=== PATIENT | male | born 1965 | race Caucasian/White ===

== ENCOUNTER 2018-05-12 17:53 | Emergency (ER) | payer OTHER ==
[2018-05-12 17:54] VITALS: BMI 32.8
[2018-05-12 18:12] VITALS: BP 148/87; PULSE 67; TEMP 98.1; O2SAT 97
[2018-05-12] MEDS ORDERED: Tdap Vaccine 0.5 ml Vial (10-64 yrs) IM ONE ×2 (18:23→18:31)
--- NOTE | 2018-05-12 18:34 | C.PDOC ---
History Of Present Illness 52 year old male presents to the ED for worsening localized left foot pain caused by a puncture wound s/p nail injury sustained 5 days ago. Patient reports he was able to ambulate but the pain has since increased and worse when bearing weight. Denies weakness or numbness of the left foot/leg, deformities to the left foot, fever, and any other associated symptoms. Time Seen by Provider: 05/12/18 18:00 Chief Complaint (Nursing): Abnormal Labs History Per: Patient History/Exam Limitations: no limitations Onset/Duration Of Symptoms: Days Current Symptoms Are (Timing): Still Present Past Medical History Reviewed: Historical Data, Nursing Documentation, Vital Signs Vital Signs: Last Vital Signs Temp 98.1 F 05/12/18 18:08 Pulse 67 05/12/18 18:08 Resp BP 148/87 05/12/18 18:08 Pulse Ox 97 05/12/18 18:08 - [facility] Procedures TETANUS TOXOID ADMINIST (12/13/14) Family History: States: Unknown Family Hx - Social History Hx Tobacco Use: Yes Hx Alcohol Use: Yes Hx Substance Use: No - Immunization History Hx Tetanus Toxoid Vaccination: Yes (UTD) Review Of Systems Except As Marked, All Systems Reviewed And Found Negative. Constitutional: Negative for: Fever Musculoskeletal: Positive for: Foot Pain (left. ). Negative for: Other (deformities of the left foot. ) Neurological: Negative for: Weakness, Numbness, Incoordination Physical Exam - Physical Exam Appears: Well, Non-toxic, No Acute Distress Skin: Warm, Dry, Other (x22 puncture wounds to the plantar aspect left of the left foot. (-)edema, (-) wound discharge., (-) proximal streaking or erythema.) Head: Normacephalic Eye(s): bilateral: PERRL Oral Mucosa: Moist Extremity: Normal ROM (of the left foot. ), No Tenderness, No Calf Tenderness, Capillary Refill (less than 2 seconds.), No Deformity, No Swelling Pulses: Left Dorsalis Pedis: Normal, Right Dorsalis Pedis: Normal Neurological/Psych: Oriented x3, Normal Speech, Normal Cognition, Normal Motor, Normal Sensation, Normal Reflexes Gait: Unsteady (secondary to the pain.) ED Course And Treatment O2 Sat by Pulse Oximetry: 97 (RA) Pulse Ox Interpretation: Normal - Other Rad Left foot X-Ray: Interpreted by Me, Viewed By Me Interpretation: (-) acute fx or dislocation, no FB Progress Note: Plan: LT Foot xray. Adacel. Cirpo. On re-eval, pt is afebrile, hemodynamicaly stable. Ambulatory in ED with stable gait. NOn-toxic. Tolerate PO well in ED. Left foot: (+) puncture wound, no edema, no cellulitis, no proximal streaking, no discharge. FAROM, no neurovascular deficits. neuorlogicaly intact. XRay review (-) acute findings. Pt advised. ref. to f/u with Podiatry In 1-2 days for re-eavl. return if any worsening or new changes. Disposition Counseled Patient/Family Regarding: Studies Performed, Diagnosis, Need For Followup, Rx Given - Disposition Referrals: [facility] [Outside] Disposition: HOME/ ROUTINE Disposition Time: 19:00 Condition: STABLE Additional Instructions: Warm salty water foot soaks daily for 10 minutes take medication as prescribed follow up with Podiatry Clinic on Friday from 12 PM- 3PM for re-evaluation as need return to ED if any worsening or new changes. Prescriptions: Ciprofloxacin [Cipro] 1 tab PO BID #14 tab Instructions: Wound Care Forms: [employer] (German) Print Language: LUXEMBOURGISH - Clinical Impression Clinical Impression: Puncture wound - PA / PROGRAM SCHEDULER / Resident Statement MD/DO has reviewed & agrees with the documentation as recorded. - Scribe Statement The provider has reviewed the documentation as recorded by the Scribe (Minerva Cherry) All medical record entries made by the Scribe were at my direction and personally dictated by me. I have reviewed the chart and agree that the record accurately reflects my personal performance of the history, physical exam, med [facility] decision making, and the department course for this patient. I have also personally directed, reviewed, and agree with the discharge instructions and disposition.
--- NOTE | 2018-05-13 08:28 | RAD ---
Date of service: 05/12/2018 PROCEDURE: Left Foot Radiographs. HISTORY: injury COMPARISON: None. FINDINGS: BONES: No acute fracture or destructive bony lesion identified. JOINTS: No subluxation or dislocation identified. Joint space narrowing and articular cortical sclerosis at the 1st metatarsophalangeal joint indicate degenerative joint disease. SOFT TISSUES: Normal. OTHER FINDINGS: None. IMPRESSION: [id number] degenerative joint disease 1st metatarsophalangeal joint. No acute fracture or destructive bony lesion appreciated throughout the left foot. No dislocation.
== END 2018-05-12 19:27 | disposition home or self-care (01) ==
LOC: C.ER 17:53
DX: S91.332A Puncture wound without foreign body, left foot, initial encounter (principal); W45.0XXA Nail entering through skin, initial encounter